=== PATIENT | male | born 2000 | race Caucasian/White ===

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

== ENCOUNTER 2022-03-21 17:11 | Emergency (ER) | payer BC, MEDICAID ==
[~2022-03-21] VITALS: Ht 180.3 cm; Wt 70.5 kg
[~2022-03-21 17:11] MED LIST changes: +METH-360 PO
[2022-03-21 17:57] VITALS: BP 125/77
== END 2022-03-21 21:26 | disposition home or self-care (01) ==
LOC: ER 17:11
DX: S93.601A Unspecified sprain of right foot, initial encounter (principal); M79.671 Pain in right foot; Z79.2 Long term (current) use of antibiotics; X58.XXXA Exposure to other specified factors, initial encounter; Y93.89 Activity, other specified; Y92.89 Other specified places as the place of occurrence of the external cause; Y99.8 Other external cause status
CPT/HCPCS: 29515; 73630; 99283

== ENCOUNTER 2022-12-01 13:08 | Emergency (ER) | payer BC, MEDICAID ==
[~2022-12-01] VITALS: Ht 182.9 cm; Wt 68.0 kg
[2022-12-01 14:01] VITALS: BP 107/82
[2022-12-01] MEDS ORDERED: IBUP-1986 PO (15:09)
[2022-12-01] MEDS ORDERED: CYCL-1 PO (15:09)
[2022-12-01] MEDS ORDERED: ketorolac trometh inj. 60 MG/2 ML VIAL IM ONE (15:15)
== END 2022-12-01 15:35 | disposition home or self-care (01) ==
LOC: ER 13:09
DX: S20.211A Contusion of right front wall of thorax, initial encounter (principal); V89.2XXA Person injured in unspecified motor-vehicle accident, traffic, initial encounter; Y93.89 Activity, other specified; Y92.89 Other specified places as the place of occurrence of the external cause; Y99.8 Other external cause status
CPT/HCPCS: 71045; 96372; 99283; J1885